=== PATIENT | female | born 1955 | race Caucasian/White ===

== ENCOUNTER 2016-10-22 19:03 | Emergency (ER) | payer OTHER ==
[2016-10-22 19:14] VITALS: BP 162/90; PULSE 75; TEMP 98.2; BMI 27.0
[2016-10-22] MEDS ORDERED: morphine CARPU-JECT 4 MG/1 ML DISP.SYRIN IVPUSH ONE (19:43)
[2016-10-22] MEDS ORDERED: SODIUM CHLORIDE 1,000 ML IV STA (19:43)
[2016-10-22] MEDS ORDERED: METOCLOPRAMIDE HCL INJECTION 10 MG/2 ML VIAL IVPB ONE (19:43)
[2016-10-22] MEDS ORDERED: morphine CARPU-JECT 4 MG/1 ML DISP.SYRIN ONE (19:54)
[2016-10-22] MEDS ORDERED: METOCLOPRAMIDE HCL INJECTION 10 MG/2 ML VIAL ONE (19:54)
--- NOTE | 2016-10-22 20:08 | PDOC ---
History of Present Illness - General Chief Complaint: Pain, Acute Stated Complaint: LT LOWER BACK&EPIGASTRIC PAIN Time Seen by Provider: 10/22/16 19:30 History Source: Patient, Family, Cage Operator Used Exam Limitations: Language Barrier - History of Present Illness Initial Comments: 10/22/16 19:58 61yo Female patient presents to ED with and daughter c/o severe back pain. Patient reports symptoms began gradually approximately 1 week ago. She states the back pain radiates to her left buttocks and left hip. Patient has been using OTC Motrin with some relief, but pain returns stronger. Patient states pain worse when she moves but also notes she has burning on urination. Associated ongoing epigastric pain which patient had an ultrasound done 1 year ago, and results were negative. Patient does make it known that if she did not have back pain, she would not have presented to ED for abd pain, as this is something she deals with daily. Denies n/v/d, fever, diff breathing, chest pain , rash, or any other complaints at this time. Occurred: reports: last week Severity: reports: moderate Pain Location: reports: back Method of Injury: No: unknown, assault, direct blow, fall, motor vehicle crash, other Modifying Factors: improves with: pain medication (MOTRIN) Past History - Travel Traveled outside of the country in the last 30 days: No Close contact w/someone who was outside of country & ill: No - Past Medical History Allergies/Adverse Reactions: Allergies Allergy/AdvReac Type Severity Reaction Status Date / Time No Known Allergies Allergy Verified 10/22/16 19:07 Home Medications: Ambulatory Orders Cyclobenzaprine HCl [Flexeril 10 mg] 10 mg PO TID PRN #30 tablet 10/22/16 Ibuprofen [Motrin -] 600 mg PO QID #28 tablet 10/22/16 Oxycodone HCl/Acetaminophen [Percocet 5-325 mg Tablet] 1 tab PO Q6H PRN #12 tablet MDD 4 tabs 10/22/16 Diabetes: Yes HTN: Yes - Psycho/Social/Smoking Cessation Hx Anxiety: No Suicidal Ideation: No Smoking Status: No Smoking History: Never smoked Have you smoked in the past 12 months: No Number of Cigarettes Smoked Daily: 0 Hx Alcohol Use: No Substance Use Type: None Trauma Specific PMHX - Complaint Specific PMHX Arthritis: No Back Injury: No Neck Injury: No Hx Sacro Iliac Joint Dysfunction: No Review of Systems - Review of Systems Able to Perform ROS?: Yes Is the patient limited Burkinan proficient: No Constitutional: No: Chills, Fever, Night Sweats Respiratory: No: Cough, Shortness of Breath, Stridor, Wheezing Cardiac (ROS): No: Chest Pain, Lightheadedness, Palpitations, Syncope, Chest Tightness ABD/GI: Yes: Other (Abdominal Pain Chronic). No: Diarrhea, Nausea, Poor Appetite, Poor Fluid Intake, Vomiting Musculoskeletal: Yes: Back Pain Integumentary: No: Rash Neurological: No: Headache, Seizure, Tremors, Weakness, Dizziness All Other Systems: Reviewed and Negative *Physical Exam - Vital Signs Last Vital Signs Temp Pulse Resp BP Pulse Ox 98.2 F 75 19 162/90 97 10/22/16 19:07 10/22/16 19:07 10/22/16 19:07 10/22/16 19:07 10/22/16 19:07 Heart Score/ECG Review - ECG Impressions Normal ECG: Yes Non-specific ST Elevation: No Ischemic Changes: No Bradycardia: No Torsades bia Pointes: No WPW: No ED Treatment Course - LABORATORY CBC & Chemistry Diagram: 10/22/16 20:00 10/22/16 20:00 Medical Decision Making - Medical Decision Making 10/22/16 20:02 1. Sciatica 2. Renal Colic 3. UTI vs Pyelonephritis 4. Renal Failure 5. Aortic Dissection 6. AL Plan: Cbc, CMP, Cardiac Profile, Urinalysis, Urine culture, EKG. Narcotic Pain meds, Fluids, Anti-emetics. then: possible radiological studies. *DC/Admit/Observation/Transfer Diagnosis at time of Disposition: Low back pain with sciatica Qualifiers: Chronicity: acute Back pain laterality: left Sciatica laterality: sciatica of left side Qualified Code(s): M54.42 - Lumbago with sciatica, left side Lumbago Qualifiers: Chronicity: acute Back pain laterality: left Sciatica presence: with sciatica Sciatica laterality: sciatica of left side Qualified Code(s): M54.42 - Lumbago with sciatica, left side - Discharge Dispostion Disposition: HOME Condition at time of disposition: Improved Admit: No - Prescriptions Prescriptions: Cyclobenzaprine HCl [Flexeril 10 mg] 10 mg PO TID PRN #30 tablet PRN Reason: severe back pain Ibuprofen [Motrin -] 600 mg PO QID #28 tablet Oxycodone HCl/Acetaminophen [Percocet 5-325 mg Tablet] 1 tab PO Q6H PRN #12 tablet MDD 4 tabs PRN Reason: Severe Pain - Referrals Referrals: Lauryn Marquez MD [Primary Care Provider] - Dmitry Gamble MD [Staff Physician] - Brianne Barrett MD [Staff Physician] - - Patient Instructions Printed Discharge Instructions: DI for Back Pain With Sciatica Additional Instructions: FOLLOW UP WITH DR. BARRETT (NEUROLOGY) OR DR. GAMBLE (ORTHOPEDIC) REGARDING TODAYS VISIT. CALL TO SCHEDULE APPOINTMENT. TAKE MEDICATIONS PRESCRIBED. RETURN IF SYMPTOMS WORSEN, OR ANY CONCERNS FOR FURTHER EVALUATION. DO NOT DRIVE , DRINK ALCOHOL, OR OPERATE HEAVY MACHINERY WHILE TAKING PERCOCET OR CYCLOBENZAPRINE. DRINK PLENTY WATER AND FOLLOW UP WITH YOUR PRIMARY CARE PROVIDER THIS WEEK. SEGUIMIENTO CON EL DR. BARRETT (NEUROLOGA) O DR. GAMBLE (ORTOPEDIA) EN RELACIN CON LA VISITA DE EVAN. LEWISAMAR PARA CALIFICAR LA MOMO. BRIGITTE MEDICAMENTOS FRAN SE PRESCRIBE. DEVUELVA SI SNTOMAS WORSEN, O CUALESQUIERA PREOCUPACIONES PARA LA EVALUACIN ADICIONAL. NO CONDUZCA, GORGE ALCOHOL, NI OPERE MAQUINAS PESADAS MIENTRAS MEEK PERCOCET O CYCLOBENZAPRINE. RUTH MUCHO AGUA Y SIGA CON BASURTO PROVEEDOR DE CUIDADO PRIMARIO ESTA SEMANA. Print Language: SINHALA
[2016-10-22 20:24] LABS: BASOPHIL 0.7 % (0-2.0); EOSINOPHIL 1.5 % (0-4.5); MCH 27.6 pg (25.7-33.7); MCHC 33.3 g/dl (32.0-36.0); MEAN CELL VOLUME 82.9 fl (80-96); MEAN PLT VOLUME 8.4 fl (7.5-11.1); NEUTROPHILS 55.9 % (42.8-82.8); PLATELET COUNT 242 K/MM3 (134-434); RDW 14.2 % (11.6-15.6); WHITE BLOOD COUNT 7.4 K/mm3 (4.0-10.0)
[2016-10-22 20:47] LABS: ALBUMIN 3.5 g/dl (3.4-5.0); ANION GAP 9 (8-16); BILIRUBIN,TOTAL 0.2 mg/dL (0.2-1.0); CALCIUM 8.6 mg/dL (8.5-10.1); CO2 28 mmol/L (21-32); CREATININE 1.3 mg/dL (0.55-1.02); GLUCOSE,RANDOM 125 mg/dL (74-106); SGOT/AST 16 U/L (15-37); SGPT/ALT 30 U/L (12-78); TOT PROT 7.7 g/dl (6.4-8.2)
[2016-10-22 20:54] LABS: ALK PHOS 90 U/L (45-117); TROPONIN I < 0.02 ng/ml (0.00-0.05)
[2016-10-22 20:58] LABS: URINE APPEARANCE CLEAR; URINE BILIRUBIN NEGATIVE (NEGATIVE); URINE BLOOD NEGATIVE (NEGATIVE); URINE COLOR STRAW; URINE GLUCOSE (UA) NEGATIVE (NEGATIVE); URINE KETONE NEGATIVE (NEGATIVE); URINE NITRITE NEGATIVE (NEGATIVE); URINE PROTEIN NEGATIVE (NEGATIVE); URINE UROBILINOGEN NEGATIVE E.U./dl (0.2-1.0)
[2016-10-22 21:07] LABS: URINE LEUK ESTERASE 1+ (NEGATIVE)
[2016-10-22 21:11] LABS: URINE MUCUS RARE; URINE RBC 1 /hpf (0-3); URINE WBC 8 /hpf (3-5)
[2016-10-22] MEDS ORDERED: methylPREDNISolone NA SUCC 125 MG/2 ML VIAL IVPB ONE (22:22)
[2016-10-22] MEDS ORDERED: methylPREDNISolone NA SUCC 125 MG/2 ML VIAL ONE (22:31)
--- NOTE | 2016-10-24 17:14 | EKG ---
Test Reason : Blood Pressure : / mmHG Vent. Rate : 064 BPM Atrial Rate : 064 BPM P-R Int : 174 ms QRS Dur : 084 ms QT Int : 398 ms P-R-T Axes : 063 043 050 degrees QTc Int : 410 ms NORMAL SINUS RHYTHM POSSIBLE LEFT ATRIAL ENLARGEMENT BORDERLINE ECG NO PREVIOUS ECGS AVAILABLE Confirmed by GOGO GONZALEZ MD ([id number]) on 10/24/2016 5:13:31 PM Referred By: Confirmed By:GOGO GONZALEZ MD
== END 2016-10-22 22:44 | disposition home or self-care (01) ==
LOC: JER 19:03
PROC: 3E033NZ Introduction of Analgesics, Hypnotics, Sedatives into Peripheral Vein, Percutaneous Approach (ICD-10-PCS; principal; 2016-10-22)
PROC: 3E033GC Introduction of Other Therapeutic Substance into Peripheral Vein, Percutaneous Approach (ICD-10-PCS; 2016-10-22)
DX: M54.42 Lumbago with sciatica, left side (principal); I10 Essential (primary) hypertension; E11.9 Type 2 diabetes mellitus without complications
CPT/HCPCS: 36415; 80053; 81003; 81015; 82550; 84484; 85025; 87086; 93005; 93010; 96374; 96375; 99284-25

== ENCOUNTER 2017-08-25 04:55 | Emergency (ER) | payer OTHER ==
[2017-08-25 05:50] VITALS: BMI 29.2
[2017-08-25] MEDS ORDERED: SODIUM CHLORIDE 1,000 ML IV STA (05:59)
--- NOTE | 2017-08-25 06:10 | PDOC ---
History of Present Illness - General Chief Complaint: Pain, Acute Stated Complaint: PAIN Time Seen by Provider: 08/25/17 06:08 History Source: Patient Exam Limitations: No Limitations - History of Present Illness Travel History: No Initial Comments: 08/25/17 06:08 61-year-old female with a history of hypertension and NIDDM presents to the emergency department complaining of left-sided flank pain 4 hours. Pain is described as 8/10 sharp intermittent left-sided flank pain radiating to the left groin with urinary frequency/hesitancy, dysuria and urgency and nausea but without fever, chills, vomiting, headache, dizziness, lightheadedness, neck/ back pains, chest pain, shortness of breath, abdominal pain. No history of renal colic or pyelonephritis. Abdominal Pain Onset Location: reports: flank (left) Past History - Past Medical History Allergies/Adverse Reactions: Allergies Allergy/AdvReac Type Severity Reaction Status Date / Time No Known Allergies Allergy Verified 08/25/17 05:33 Home Medications: Ambulatory Orders Naproxen [Naprosyn -] 500 mg PO BID #14 tablet 08/25/17 Oxycodone HCl/Acetaminophen [Percocet 5-325 mg Tablet -] 1 - 2 tab PO Q4H PRN # 10 tablet MDD 4 08/25/17 Tamsulosin HCl [Flomax] 0.4 mg PO DAILY #7 cap.er.24h 08/25/17 Diabetes: Yes HTN: Yes - Suicide/Smoking/Psychosocial Hx Smoking Status: No Smoking History: Never smoked Have you smoked in the past 12 months: No Number of Cigarettes Smoked Daily: 0 Information on smoking cessation initiated: No Hx Alcohol Use: No Drug/Substance Use Hx: No Substance Use Type: None Review of Systems - Review of Systems Able to Perform ROS?: Yes Comments:: 08/25/17 06:10 CONSTITUTIONAL: Absent: fever, chills, diaphoresis, generalized weakness, malaise, loss of appetite HEENT: Absent: rhinorrhea, nasal congestion, throat pain, throat swelling, difficulty swallowing, mouth swelling, ear pain, eye pain, visual Changes CARDIOVASCULAR: Absent: chest pain, loss of consciousness, palpitations, irregular heart rate, peripheral edema RESPIRATORY: Absent: cough, shortness of breath, dyspnea with exertion, orthopnea, wheezing, stridor, hemoptysis GASTROINTESTINAL: Absent: abdominal pain, abdominal distension, nausea, vomiting, diarrhea, constipation, melena, hematochezia GENITOURINARY: +left flank pain Absent: dysuria, frequency, urgency, hesitancy, hematuria, genital pain MUSCULOSKELETAL: Absent: myalgia, arthralgia, joint swelling SKIN: Absent: rash, itching, pallor HEMATOLOGIC/IMMUNOLOGIC: Absent: easy bleeding, easy bruising, lymphadenopathy, frequent infections ENDOCRINE: Absent: unexplained weight gain, unexplained weight loss, heat intolerance, cold intolerance NEUROLOGIC: Absent: headache, focal weakness or paresthesias, dizziness, unsteady gait, seizure, mental status changes, bladder or bowel incontinence PSYCHIATRIC: Absent: anxiety, depression, suicidal or homicidal ideation, hallucinations. Is the patient limited Malay proficient: No *Physical Exam - Vital Signs Last Vital Signs Temp Pulse Resp BP Pulse Ox 98.7 F 72 20 144/75 100 08/25/17 05:33 08/25/17 05:33 08/25/17 05:33 08/25/17 05:33 08/25/17 05:33 - Physical Exam Comments: 08/25/17 06:10 GENERAL: Well developed, well nourished. Awake and alert. No acute distress. HEENT: Normocephalic, atraumatic. PERRLA, EOMI. No conjunctival pallor. Sclera are non- icteric. Moist mucous membranes. Oropharynx is clear. NECK: Supple. Full ROM. No JVD. Carotid pulses 2+ and symmetric, without bruits. No thyromegaly. No lymphadenopathy. CARDIOVASCULAR: Regular rate and rhythm. No murmurs, rubs, or gallops. Distal pulses are 2+ and symmetric. PULMONARY: No evidence of respiratory distress. Lungs clear to auscultation bilaterally. No wheezing, rales or rhonchi. ABDOMINAL: Soft. Non-tender. Non-distended. No rebound or guarding. No organomegaly. Normoactive bowel sounds. MUSCULOSKELETAL +Left CVAT Normal range of motion at all joints. No bony deformities or tenderness. EXTREMITIES: No cyanosis. No clubbing. No edema. No calf tenderness. SKIN: Warm and dry. Normal capillary refill. No rashes. No jaundice. NEUROLOGICAL: Alert, awake, appropriate. Cranial nerves 2-12 intact. No deficits to light touch and temperature in face, upper extremities and lower extremities. No motor deficits in the in face, upper extremities and lower extremities. Normoreflexic in the upper and lower extremities. Normal speech. Toes are down- going bilaterally. Gait is normal without ataxia. PSYCHIATRIC: Cooperative. Good eye contact. Appropriate mood and affect. ED Treatment Course - LABORATORY CBC & Chemistry Diagram: 08/25/17 05:55 08/25/17 05:55 Progress Note - Progress Note Progress Note: 0700hrs: Signed out to TECHNICAL WRITER Hong Pt unable to give Urine sample as of now. CT scan pending cmp pending *DC/Admit/Observation/Transfer Diagnosis at time of Disposition: Renal colic on left side - Discharge Dispostion Disposition: HOME Condition at time of disposition: Stable - Prescriptions Prescriptions: Naproxen [Naprosyn -] 500 mg PO BID #14 tablet Oxycodone HCl/Acetaminophen [Percocet 5-325 mg Tablet -] 1 - 2 tab PO Q4H PRN # 10 tablet MDD 4 PRN Reason: Pain Tamsulosin HCl [Flomax] 0.4 mg PO DAILY #7 cap.er.24h - Referrals Referrals: Lauryn Marquez MD [Primary Care Provider] - - Patient Instructions Printed Discharge Instructions: DI for Kidney Stones Additional Instructions: Rest, drink lots of fluids: Teas, water, soups Elizabeth blayne, carbonated beverages for the bubbles May try peppermint teas Continue [id number] medications for symptomatic relief Tylenol or Motrin for fever and pain May use Percocet for severe pain, remembering will make dizzy and sleepy Flomax 0.04 mg daily to continue allow opening for kidney stones to pass Followup with private physician in one to 2 days Call for appointment with urology this week to review diagnosis and for further follow-up Return to emergency department for worsened symptoms, fevers, dehydration - Post Discharge Activity Forms/Work/School Notes: Back to Work
[2017-08-25 06:23] LABS: BASO % 0.5 % (0-2.0); EOS % 1.5 % (0-4.5); HEMATOCRIT 40.1 % (32.4-45.2); LYMPH % 22.5 % (8-40); MCH 27.5 pg (25.7-33.7); MCHC 32.4 g/dl (32.0-36.0); MEAN PLT VOLUME 8.6 fl (7.5-11.1); MONO % 9.4 % (3.8-10.2); NEUT % 66.1 % (42.8-82.8); PLATELET COUNT 232 K/MM3 (134-434); RBC 4.72 M/mm3 (3.60-5.2); RDW 13.8 % (11.6-15.6); WHITE BLOOD COUNT 8.4 K/mm3 (4.0-10.0)
[2017-08-25] MEDS ORDERED: METOCLOPRAMIDE HCL INJECTION 10 MG/2 ML VIAL IVPB ONE (06:39)
[2017-08-25] MEDS ORDERED: METOCLOPRAMIDE HCL INJECTION 10 MG/2 ML VIAL ONE (06:44)
[2017-08-25] MEDS ORDERED: morphine CARPU-JECT 2 MG/1 ML DISP.SYRIN IVPUSH ONE (06:47)
[2017-08-25 06:58] LABS: CALCIUM 8.2 mg/dL (8.5-10.1); CHLORIDE 107 mmol/L (98-107); SODIUM 139 mmol/L (136-145)
[2017-08-25 07:02] LABS: ALBUMIN 3.5 g/dl (3.4-5.0); ALK PHOS 111 U/L (45-117); ANION GAP 7 (8-16); BILIRUBIN,TOTAL 0.3 mg/dL (0.2-1.0); BLOOD UREA NITROGEN 18 mg/dL (7-18); CO2 25 mmol/L (21-32); CREATININE 0.7 mg/dL (0.55-1.02); GLUCOSE,RANDOM 163 mg/dL (74-106); SGOT/AST 13 U/L (15-37); SGPT/ALT 24 U/L (12-78); TOT PROT 7.4 g/dl (6.4-8.2)
[2017-08-25] MEDS ORDERED: morphine CARPU-JECT 10 MG/1 ML DISP.SYRIN ONE (07:13)
[2017-08-25 07:30] LABS: URINE APPEARANCE CLEAR; URINE BILIRUBIN NEGATIVE (NEGATIVE); URINE BLOOD 1+ (NEGATIVE); URINE COLOR STRAW; URINE GLUCOSE (UA) NEGATIVE (NEGATIVE); URINE KETONE NEGATIVE (NEGATIVE); URINE LEUK ESTERASE TRACE (NEGATIVE); URINE NITRITE NEGATIVE (NEGATIVE); URINE PROTEIN NEGATIVE (NEGATIVE); URINE UROBILINOGEN NEGATIVE mg/dL (0.2-1.0)
[2017-08-25 08:41] LABS: EPI CELLS RARE /HPF (FEW); URINE MUCUS RARE
[2017-08-25] MEDS ORDERED: KETOROLAC TROMETHAMINE 30 MG/1 ML VIAL IVPUSH ONE (09:26)
[2017-08-25] MEDS ORDERED: KETOROLAC TROMETHAMINE 30 MG/1 ML VIAL ONE (09:27)
--- NOTE | 2017-08-25 09:38 | PDOC ---
*Physical Exam - Vital Signs Last Vital Signs Temp Pulse Resp BP Pulse Ox 98.7 F 72 20 144/75 100 08/25/17 05:33 08/25/17 05:33 08/25/17 05:33 08/25/17 05:33 08/25/17 05:33 - Physical Exam Comments: 08/25/17 09:43 Received patient from PEDRO Mulligan this morning at 7 AM who states that CAT scan is been completed but results are pending patient was resting quietly in bed until approximately 0815 when had a gradual recurrence of this pain. CAT scan results were still pending, patient still receiving fluid and morphine had been given approximately one hour previous. Patient states would wait for more pain medicine. At 9:30 patient states pain had progressively worsened and is requesting pain medication CAT scan reports revealed a 2 mm calculus noted at the left ureterovesical junction with some mild hydronephrosis General Appearance: Yes: Nourished, Appropriately Dressed, Apparent Distress, Mild Distress, Moderate Distress HEENT: positive: AILYN, Normal ENT Inspection, Normal Voice, TMs Normal, Pharynx Normal Neck: positive: Tender, Supple. negative: Lymphadenopathy (R), Lymphadenopathy (L) Respiratory/Chest: positive: Lungs Clear, Normal Breath Sounds. negative: Respiratory Distress Cardiovascular: positive: Regular Rhythm Gastrointestinal/Abdominal: positive: Tender, Soft, Other Musculoskeletal: positive: Normal Inspection, CVA Tenderness, CVA Tenderness (L) Extremity: positive: Normal Inspection, Tender Integumentary: positive: Dry, Warm, Pale Neurologic: positive: relay shop tester II-XII NML intact, Fully Oriented, Alert, Normal Mood/ Affect, Normal Response, Motor Strength 5/5 ED Treatment Course - LABORATORY CBC & Chemistry Diagram: 08/25/17 05:55 08/25/17 05:55 - ADDITIONAL ORDERS Additional order review: Laboratory Results 08/25/17 08/25/17 07:20 05:55 Sodium 139 Potassium 4.0 Chloride 107 Carbon Dioxide 25 Anion Gap 7 L BUN 18 Creatinine 0.7 Creat Clearance w eGFR > 60 Random Glucose 163 H Calcium 8.2 L Total Bilirubin 0.3 D AST 13 L ALT 24 Alkaline Phosphatase 111 Total Protein 7.4 Albumin 3.5 Urine Color Straw Urine Appearance Clear Urine pH 7.0 Ur Specific [place] 1.012 Urine Protein Negative Urine Glucose (UA) Negative Urine Ketones Negative Urine Blood 1+ H Urine Nitrite Negative Urine Bilirubin Negative Urine Urobilinogen Negative Ur Leukocyte Esterase Trace Urine WBC (Auto) 2 Urine RBC (Auto) 1 Ur Epithelial Cells Rare Urine Mucus Rare 08/25/17 05:55 RBC 4.72 MCV 85.0 MCHC 32.4 RDW 13.8 MPV 8.6 Neutrophils % 66.1 Lymphocytes % 22.5 D Monocytes % 9.4 Eosinophils % 1.5 Basophils % 0.5 - Medications Given in the ED: ED Medications Discontinued Medications Generic Name Dose Route Start Last Admin Trade Name Freq PRN Reason Stop Dose Admin Sodium Chloride 1,000 mls @ 1,000 mls/hr 08/25/17 05:59 08/25/17 06:41 Normal Saline - IV 08/25/17 06:58 1,000 mls/hr ASDIR STA Administration Metoclopramide HCl 10 mg 08/25/17 06:39 08/25/17 06:39 Reglan Injection - IVPB 08/25/17 06:40 10 mg ONCE ONE Administration Morphine Sulfate 2 mg 08/25/17 06:47 08/25/17 07:16 Morphine Injection - IVPUSH 08/25/17 06:48 2 mg ONCE ONE Administration Medical Decision Making - Medical Decision Making 08/25/17 0900:00 CAT scan report reveals a 2 mm calculi at the ureter vesicular junction with mild to moderate hydronephrosis. Patient is without eye white blood count, is afebrile, therefore we will treat with Flomax, NSAIDs and Percocet for pain management and encouraged follow-up with PMD or urology on Sunday. Patient understands to return to emergency department for fevers, versus pain, or other problems. 08/25/17 13:01 *DC/Admit/Observation/Transfer Diagnosis at time of Disposition: Renal colic on left side - Discharge Dispostion Disposition: HOME Condition at time of disposition: Stable Admit: No - Prescriptions Prescriptions: Naproxen [Naprosyn -] 500 mg PO BID #14 tablet Oxycodone HCl/Acetaminophen [Percocet 5-325 mg Tablet -] 1 - 2 tab PO Q4H PRN # 10 tablet MDD 4 PRN Reason: Pain Tamsulosin HCl [Flomax] 0.4 mg PO DAILY #7 cap.er.24h - Referrals Referrals: Lauryn Marquez MD [Primary Care Provider] - - Patient Instructions Printed Discharge Instructions: DI for Kidney Stones Additional Instructions: Rest, drink lots of fluids: Teas, water, soups Elizabeth blayne, carbonated beverages for the bubbles May try peppermint teas Continue [id number] medications for symptomatic relief Tylenol or Motrin for fever and pain May use Percocet for severe pain, remembering will make dizzy and sleepy Flomax 0.04 mg daily to continue allow opening for kidney stones to pass Followup with private physician in one to 2 days Call for appointment with urology this week to review diagnosis and for further follow-up Return to emergency department for worsened symptoms, fevers, dehydration - Post Discharge Activity Forms/Work/School Notes: Back to Work
[2017-08-25 10:03] VITALS: BP 122/69; PULSE 63; TEMP 98.6
== END 2017-08-25 10:03 | disposition home or self-care (01) ==
LOC: JER 04:55
PROC: 3E0337Z Introduction of Electrolytic and Water Balance Substance into Peripheral Vein, Percutaneous Approach (ICD-10-PCS; principal; 2017-08-25)
PROC: 3E033NZ Introduction of Analgesics, Hypnotics, Sedatives into Peripheral Vein, Percutaneous Approach (ICD-10-PCS; 2017-08-25)
PROC: 3E0333Z Introduction of Anti-inflammatory into Peripheral Vein, Percutaneous Approach (ICD-10-PCS; 2017-08-25)
PROC: 3E033GC Introduction of Other Therapeutic Substance into Peripheral Vein, Percutaneous Approach (ICD-10-PCS; 2017-08-25)
DX: N13.2 Hydronephrosis with renal and ureteral calculous obstruction (principal)
CPT/HCPCS: 36415; 74176; 80053; 81003; 81015; 85025; 87086; 96361; 96374; 96375; 99283-25

== ENCOUNTER 2017-11-15 23:23 | Emergency (ER) | payer OTHER ==
[2017-11-15 23:29] VITALS: BP 156/86; PULSE 82; TEMP 98.2; BMI 27.9
--- NOTE | 2017-11-15 23:52 | PDOC ---
History of Present Illness - General Chief Complaint: Pain Stated Complaint: PAIN, ACUTE Time Seen by Provider: 11/15/17 23:51 - History of Present Illness Initial Comments: 11/15/17 23:51 Ms. Velez is a 62 yo female w/ pmh of HTN, NIDDM, Renal colic, and kidney stones who presents complaining of sudden onset left sided abdominal pain radiating to her left side with associated pain with urinating, blood in her urine, and frequency since 6pm this evening. She believes this feels like her prior episodes of kidney stones. The patient denies chest pain, shortness of breath, headache and dizziness. Denies fever, chills, nausea, vomit, diarrhea and constipation. Allergies: NKDA Past History - Past Medical History Allergies/Adverse Reactions: Allergies Allergy/AdvReac Type Severity Reaction Status Date / Time No Known Allergies Allergy Verified 11/15/17 23:28 Home Medications: Ambulatory Orders Naproxen [Naprosyn -] 500 mg PO BID #14 tablet 08/25/17 Oxycodone HCl/Acetaminophen [Percocet 5-325 mg Tablet -] 1 - 2 tab PO Q4H PRN # 10 tablet MDD 4 08/25/17 Tamsulosin HCl [Flomax] 0.4 mg PO DAILY #7 cap.er.24h 08/25/17 Levofloxacin [Levaquin] 500 mg PO QID #7 tablet 11/16/17 COPD: No Diabetes: Yes HTN: Yes - Immunization History Immunization Up to Date: Yes - Suicide/Smoking/Psychosocial Hx Smoking Status: No Smoking History: Never smoked Have you smoked in the past 12 months: No Number of Cigarettes Smoked Daily: 0 Hx Alcohol Use: No Drug/Substance Use Hx: No Substance Use Type: None Review of Systems - Review of Systems Comments:: 11/15/17 23:52 GENERAL/CONSTITUTIONAL: No fever or chills. No weakness. HEAD, EYES, EARS, NOSE AND THROAT: No change in vision. No ear pain or discharge. No sore throat. CARDIOVASCULAR: No chest pain or shortness of breath RESPIRATORY: No cough, wheezing, or hemoptysis. GASTROINTESTINAL: +Pelvic pain. No nausea, vomiting, diarrhea or constipation. GENITOURINARY: Dysuria, increased frequency, and blood noted in urine this evening. MUSCULOSKELETAL: No joint or muscle swelling or pain. No neck or back pain. SKIN: No rash NEUROLOGIC: No headache, vertigo, loss of consciousness, or change in strength/ sensation. ENDOCRINE: No increased thirst. No abnormal weight change HEMATOLOGIC/LYMPHATIC: No anemia, easy bleeding, or history of blood clots. ALLERGIC/IMMUNOLOGIC: No hives or skin allergy. *Physical Exam - Vital Signs Last Vital Signs Temp Pulse Resp BP Pulse Ox 98.2 F 82 20 156/86 94 L 11/15/17 23:26 11/15/17 23:26 11/15/17 23:26 11/15/17 23:26 11/15/17 23:26 - Physical Exam Comments: 11/15/17 23:52 GENERAL: Awake, alert, and fully oriented, in no acute distress HEAD: No signs of trauma, normocephalic, atraumatic EYES: PERRLA, EOMI, sclera anicteric, conjunctiva clear ENT: Auricles normal inspection, hearing grossly normal, nares patent, oropharynx clear without exudates. Moist mucosa NECK: Normal ROM, supple, no lymphadenopathy, JVD, or masses LUNGS: No distress, speaks full sentences, clear to auscultation bilaterally HEART: Regular rate and rhythm, normal S1 and S2, no murmurs, rubs or gallops, peripheral pulses normal and equal bilaterally. ABDOMEN: +TTP in LLQ w/ associated L sided CVA tenderness. Soft, normoactive bowel sounds. No guarding, no rebound. No masses EXTREMITIES: Normal inspection, Normal range of motion, no edema. No clubbing or cyanosis. NEUROLOGICAL: Cranial nerves II through XII grossly intact. Normal speech, normal gait, no focal sensorimotor deficits SKIN: Warm, Dry, normal turgor, no rashes or lesions noted. ED Treatment Course - LABORATORY CBC & Chemistry Diagram: 11/16/17 00:20 11/16/17 00:20 Medical Decision Making - Medical Decision Making 11/16/17 00:11 Ms. Velez is a 62 yo female w/ pmh as described who presents w/ symptoms concerning for kidney stone. UA/CBC/CMP/CT ordered for evaluation with zofran/ morphine ordered for symptomatic relief. 11/16/17 01:39 CT negative for acute findings. Labs as below significant for WBC of 13.0 and 3 + Blood/Leukocytes on UA. Given positive UTI findings and CVA tenderness will treat for pyelonephritis and discharge with outpatient follow-up. Discharging to home. Laboratory Results - last 24 hr 11/16/17 11/16/17 11/16/17 00:20 00:20 00:20 WBC 13.0 H D RBC 4.63 Hgb 12.9 Hct 39.2 MCV 84.5 MCH 27.8 MCHC 32.9 RDW 13.8 Plt Count 220 MPV 8.5 Neutrophils % 74.1 Lymphocytes % 16.1 D Monocytes % 8.3 Eosinophils % 0.9 Basophils % 0.6 Sodium 141 Potassium 4.1 Chloride 104 Carbon Dioxide 29 Anion Gap 8 BUN 13 Creatinine 0.9 Creat Clearance w eGFR > 60 Random Glucose 141 H Calcium 9.3 Total Bilirubin 0.4 D AST 16 ALT 27 Alkaline Phosphatase 113 Total Protein 8.2 Albumin 4.0 Urine Color Ltyellow Urine Appearance Cloudy Urine pH 6.0 Ur Specific [place] 1.006 Urine Protein 1+ H Urine Glucose (UA) Negative Urine Ketones Negative Urine Blood 3+ H Urine Nitrite Negative Urine Bilirubin Negative Urine Urobilinogen Negative Ur Leukocyte Esterase 3+ H Urine WBC (Auto) 207 Urine RBC (Auto) 218 Urine Yeast Moderate *DC/Admit/Observation/Transfer Diagnosis at time of Disposition: Pyelonephritis - Discharge Dispostion Disposition: HOME - Referrals Referrals: Lauryn Marquez MD [Primary Care Provider] - - Patient Instructions Printed Discharge Instructions: DI for Kidney Infection Additional Instructions: Please return if any increase in pain, fever, chills, or other concerning symptoms. Follow-up with primary care provider as needed for further evaluation. - Post Discharge Activity
[2017-11-16] MEDS ORDERED: SODIUM CHLORIDE 1,000 ML IV STA (00:03)
[2017-11-16] MEDS ORDERED: morphine CARPU-JECT 2 MG/1 ML DISP.SYRIN IVPUSH ONE (00:03)
[2017-11-16] MEDS ORDERED: ONDANSETRON 4 MG/2 ML VIAL IVPUSH ONE (00:04)
[2017-11-16] MEDS ORDERED: ONDANSETRON 4 MG/2 ML VIAL ONE (00:15)
[2017-11-16] MEDS ORDERED: morphine SULFATE 4 MG/ML VIAL ONE (00:15)
--- NOTE | 2017-11-16 00:15 | PDOC ---
Attending Attestation - HPI HPI: 11/16/17 00:21 Patient is a 62 year old female with a significant past medical history of HTN, NIDDM, Renal colic, and kidney stones, who presents to the ED with complaints of left sided flank pain that began earlier today at 6pm. Patient reports left flank began suddenly today and has shown no signs of subsiding prompting her to come into the ED for further evaluation. She reports left flank pain feel similar to past episodes of kidney stones. Patient reports experiencing associated symptoms of dysuria, hematuria and urinary frequency. Denies chest pain, Sob. Denies nausea, vomiting. Denies constipation, diarrhea. Denies contact with sick individuals, out of state travelling. Denies any other symptoms. Allergies: NKDA Social history: No smoking. No alcohol. No illicit drugs. Surgical history: None PMD: Dr. Adams <Isac Sales - Last Filed: 11/16/17 00:21> - Resident Resident Name: Terrance Yan - ED Attending Attestation I have performed the following: I have examined & evaluated the patient, The case was reviewed & discussed with the resident, I agree w/resident's findings & plan, Exceptions are as noted - Physicial Exam PE: 11/16/17 01:45 *Physical Exam General Appearance: Yes: Appropriately Dressed. No: Apparent Distress, Intoxicated HEENT: positive: EOMI, AILYN, Normal ENT Inspection, Normal Voice, TMs Normal, Pharynx Normal. negative: Pale Conjunctivae, Photophobia, Scleral Icterus (R), Scleral Icterus (L) Neck: positive: Trachea midline, Normal Thyroid, Supple. negative: Tender, Rigid, Carotid bruit, Stridor, Lymphadenopathy (R), Lymphadenopathy (L), Thyromegaly Respiratory/Chest: positive: Lungs Clear, Normal Breath Sounds. negative: Chest Tender, Respiratory Distress, Accessory Muscle Use, Labored Respiration, RES, Crackles, Rales, Rhonchi, Stridor, Wheezing, Dullness Cardiovascular: positive: Regular Rhythm, Regular Rate, S1, S2. negative: Edema , JVD, Murmur, Bradycardia, Tachycardia Vascular Pulses: Dorsalis-Pedis (R): 2+, Doralis-Pedis (L): 2+ Gastrointestinal/Abdominal: positive: Normal Bowel Sounds, Flat, Soft. negative : Tender, Organomegaly, Pulsatile Mass, Increased Bowel Sounds, Decreased BS, Distended, Guarding, Rebound, Hernia, Hepatomegaly, Spleenomegaly Lymphatic: negative: Adenopathy, Tenderness Musculoskeletal: positive: Normal Inspection. Left CVA tenderness negative: Decreased Range of Motion Extremity: positive: Normal Capillary Refill, Normal Inspection, Normal Range of Motion, Pelvis Stable. negative: Tender, Pedal Edema, Swelling, Erythema Integumentary: positive: Normal Color, Dry, Warm. negative: Cyanotic, Erythema , Jaundice, Rash Neurologic: positive: juvenile officer II-XII NML intact, Fully Oriented, Alert, Normal Mood/ Affect, Motor Strength 5/5. negative: EOM Palsy, Facial Droop, Sensory Deficit - Medical Decision Making 11/16/17 01:48 Pt treated with IV Abx and released <Marvin Pride - Last Filed: 11/16/17 01:48>
[2017-11-16 00:40] LABS: BASO % 0.6 % (0-2.0); EOS % 0.9 % (0-4.5); HEMATOCRIT 39.2 % (32.4-45.2); HEMOGLOBIN 12.9 GM/dL (10.7-15.3); LYMPH % 16.1 % (8-40); MCH 27.8 pg (25.7-33.7); MCHC 32.9 g/dl (32.0-36.0); MEAN CELL VOLUME 84.5 fl (80-96); MEAN PLT VOLUME 8.5 fl (7.5-11.1); MONO % 8.3 % (3.8-10.2); NEUT % 74.1 % (42.8-82.8); PLATELET COUNT 220 K/MM3 (134-434); RBC 4.63 M/mm3 (3.60-5.2); RDW 13.8 % (11.6-15.6)
[2017-11-16 00:42] LABS: URINE APPEARANCE CLOUDY; URINE BILIRUBIN NEGATIVE (<2.0 mg/dL); URINE BLOOD 3+ (NEGATIVE); URINE COLOR LTYELLOW; URINE GLUCOSE (UA) NEGATIVE (NEGATIVE); URINE KETONE NEGATIVE (NEGATIVE); URINE NITRITE NEGATIVE (NEGATIVE); URINE UROBILINOGEN NEGATIVE mg/dL (0.2-1.0)
[2017-11-16 00:44] LABS: URINE LEUK ESTERASE 3+ (NEGATIVE); URINE PROTEIN 1+ (NEGATIVE)
[2017-11-16 00:50] LABS: YEAST MODERATE
[2017-11-16 01:05] LABS: ALK PHOS 113 U/L (45-117); ANION GAP 8 (8-16); BILIRUBIN,TOTAL 0.4 mg/dL (0.2-1.0); BLOOD UREA NITROGEN 13 mg/dL (7-18); CALCIUM 9.3 mg/dL (8.5-10.1); CHLORIDE 104 mmol/L (98-107); CO2 29 mmol/L (21-32); CREATININE 0.9 mg/dL (0.55-1.02); GLUCOSE,RANDOM 141 mg/dL (74-106); POTASSIUM 4.1 mmol/L (3.5-5.1); SGOT/AST 16 U/L (15-37); SGPT/ALT 27 U/L (12-78); SODIUM 141 mmol/L (136-145); TOT PROT 8.2 g/dl (6.4-8.2)
[2017-11-16] MEDS ORDERED: KETOROLAC TROMETHAMINE 30 MG/1 ML VIAL IVPUSH ONE (01:15)
[2017-11-16] MEDS ORDERED: KETOROLAC TROMETHAMINE 30 MG/1 ML VIAL ONE (01:21)
== END 2017-11-16 02:27 | disposition home or self-care (01) ==
LOC: JER 23:23
PROC: 3E03329 Introduction of Other Anti-infective into Peripheral Vein, Percutaneous Approach (ICD-10-PCS; principal; 2017-11-15)
PROC: 3E033GC Introduction of Other Therapeutic Substance into Peripheral Vein, Percutaneous Approach (ICD-10-PCS; 2017-11-15)
PROC: 3E033NZ Introduction of Analgesics, Hypnotics, Sedatives into Peripheral Vein, Percutaneous Approach (ICD-10-PCS; 2017-11-15)
PROC: 3E0333Z Introduction of Anti-inflammatory into Peripheral Vein, Percutaneous Approach (ICD-10-PCS; 2017-11-15)
DX: N10 Acute pyelonephritis (principal); I10 Essential (primary) hypertension; E11.9 Type 2 diabetes mellitus without complications; Z87.442 Personal history of urinary calculi
CPT/HCPCS: 36415; 74176; 80053; 81003; 81015; 85025; 99283-25; J7030

== ENCOUNTER 2022-09-05 16:01 | Emergency (ER) | payer OTHER ==
[2022-09-05 16:07] VITALS: BP 153/72; PULSE 63; RESP 20; TEMP 97.9; BMI 28.9
[2022-09-05] MEDS ORDERED: ACETAMINOPHEN 1000 MG/100 ML BAG IVPB ONE (17:22)
[2022-09-05] MEDS ORDERED: FAMOTIDINE 20 MG/50 ML IVPB 20 MG/50 ML MG IVPB ONE ×2 (17:22→19:18)
[2022-09-05] MEDS ORDERED: ONDANSETRON 4 MG/2 ML VIAL IVPB ONE (17:22)
[2022-09-05 17:52] LABS: BASO % 0.6 % (0-2.0); EOS % 2.1 % (0-4.5); HEMATOCRIT 39.3 % (32.4-45.2); HEMOGLOBIN 12.8 GM/dL (10.7-15.3); MCH 27.6 pg (25.7-33.7); MCHC 32.7 g/dl (32.0-36.0); MEAN CELL VOLUME 84.6 fl (80-96); MEAN PLT VOLUME 8.4 fl (7.5-11.1); MONO % 9.1 % (3.8-10.2); NEUT % 54.2 % (42.8-82.8); PLATELET COUNT 257 10^3/uL (134-434); RBC 4.64 M/mm3 (3.60-5.2); WHITE BLOOD COUNT 8.7 K/mm3 (4.0-10.0)
[2022-09-05 18:11] LABS: CALCIUM 9.1 mg/dL (8.5-10.1)
[2022-09-05 18:12] LABS: BLOOD UREA NITROGEN 15.4 mg/dL (7-18); MAGNESIUM 2.1 mg/dL (1.8-2.4)
[2022-09-05 18:14] LABS: CREATININE 0.7 mg/dL (0.55-1.3)
[2022-09-05 18:15] LABS: PHOSPHOROUS 3.6 mg/dL (2.5-4.9)
[2022-09-05 18:16] LABS: BILIRUBIN,TOTAL 0.3 mg/dL (0.2-1); TOT PROT 7.9 g/dl (6.4-8.2)
[2022-09-05] MEDS ORDERED: ONDANSETRON 4 MG/2 ML VIAL ONE (19:17)
[2022-09-05] MEDS ORDERED: ACETAMINOPHEN INJECTION 100 ML IVPB ONE (19:17)
[2022-09-05] MEDS ORDERED: LIDOCAINE 5% TOPICAL PATCH TP ONE (20:39)
[2022-09-05] MEDS ORDERED: KETOROLAC TROMETHAMINE 15 MG/ML VIAL IVPUSH ONE (20:39)
[2022-09-05] MEDS ORDERED: KETOROLAC TROMETHAMINE 15 MG/ML VIAL ONE (20:44)
[2022-09-05] MEDS ORDERED: LIDOCAINE 5% TOPICAL PATCH ONE (20:44)
[2022-09-05] MEDS ORDERED: LIDOCAINE PATCH REMOVAL MC SCH (22:00)
== END 2022-09-05 23:19 | disposition left against medical advice (07) ==
LOC: JERFT 16:01
PROC: 3E0333Z Introduction of Anti-inflammatory into Peripheral Vein, Percutaneous Approach (ICD-10-PCS; principal; 2022-09-05)
PROC: 3E033GC Introduction of Other Therapeutic Substance into Peripheral Vein, Percutaneous Approach (ICD-10-PCS; 2022-09-05)
PROC: 3E0333Z Introduction of Anti-inflammatory into Peripheral Vein, Percutaneous Approach (ICD-10-PCS; 2022-09-05)
PROC: 3E033GC Introduction of Other Therapeutic Substance into Peripheral Vein, Percutaneous Approach (ICD-10-PCS; 2022-09-05)
DX: M25.561 Pain in right knee (principal)
CPT/HCPCS: 0241U-QW; 36415; 71046-TC-FY; 73060-TC-RT-FY; 73502-TC-RT-FY; 73562-TC-RT-FY; 73590-TC-RT-FY; 80053; 83690; 83735; 84100; 84484; 85025; 86850; 86900; 86901; 93005; 93010; 93971-TC; 96374; 96375; 99285-25